=== PATIENT | female | born 1955 | race Caucasian/White ===

== ENCOUNTER → 2017-05-07 | Outpatient (CLI) | payer BC ==
--- NOTE | 2017-05-09 09:29 | STRESS TEST ---
DATE OF SERVICE: 05/07/2017 EXERCISE STRESS ECHOCARDIOGRAM Baseline heart rate is 72. Baseline blood pressure 147/90. Baseline EKG is sinus rhythm with nonspecific T-wave abnormality. SUMMARY: The patient started exercising with a baseline heart rate, blood pressure and EKG mentioned above. He was able to exercise for a total of 8 minutes on standard [facility] protocol, achieving maximum heart rate of 150 which is 95% of maximum expected heart rate. With peak exercise level, blood pressure was 187/78. EKG was showing minimal nondiagnostic changes. During recovery, heart rate and blood pressure returned to baseline. EKG returned to baseline. Echocardiographic images were acquired and reviewed in the parasternal long axis, parasternal short axis, apical four chamber and apical two chamber views. Review of the images showed normal left ventricular size with normal contractility with no ischemic changes with normal ejection fraction. CONCLUSION: 1. Good exercise tolerance for a total of 8 minutes on standard [facility] protocol, total of 9.5 METS, achieving 95% of maximum expected heart rate. 2. Mild hypertensive response to exercise returned to baseline during recovery. 3. Baseline EKG abnormality with nondiagnostic changes with peak exercise level. 4. Normal echocardiographic images at rest and with peak stress images with no ischemic changes with normal ejection fraction. Job ID: [id number] DocumentID: [id number] Dictated Date: 05/07/2017 16:44:04 Admissions Manager Rn Date: 05/07/2017 18:46:24 Dictated By: MANDEEP MCKEON MD
== END ==
LOC: CARD 10:22
PROVIDERS: ATTEND Internal Medicine Cardiovascular Disease
DX: R06.02 Shortness of breath (principal); Z82.49 Family history of ischemic heart disease and other diseases of the circulatory system
CPT/HCPCS: 93351